=== PATIENT | male | born 1965 | race African-American/Black ===

== ENCOUNTER → 2019-05-04 | Outpatient (CLI) | payer SELFPAY ==
[2016-05-30 23:00] VITALS: BP 129/76
[~2019-05-04] MED LIST: ASPI325T8 PO; LORA-434 PO
--- NOTE | 2019-05-04 15:59 | RAD ---
Complete abdomen ultrasound study Clinical indications: Abdominal pain. FINDINGS: No focal enlargement of the pancreas is seen. The intrahepatic portion of the IVC is patent. No focal aneurysmal dilatation of the abdominal aorta is seen. No hepatic mass is seen. The liver measures 15.9 cm in length which is normal. The gallbladder is normal without gallstones. The extra hepatic bile duct measures 4.5 mm in caliber which is normal. The length of the right kidney is 10.4 cm. The length of the left kidney is 10.8 cm. No hydronephrosis or renal mass or perinephric fluid collection is seen on either side. The spleen measures 8.4 cm in length which is normal. No ascites is seen. IMPRESSION: Unremarkable complete abdomen ultrasound study. Electronically signed by: Gulshan Rodriguez MD (05/04/2019 3:56 PM) [id number]
== END | disposition home or self-care (01) ==
LOC: US 07:39
PROVIDERS: ATTEND Internal Medicine
DX: R10.9 Unspecified abdominal pain (principal); F40.9 Phobic anxiety disorder, unspecified
CPT/HCPCS: 76700